=== PATIENT | female | born 1965 | race Caucasian/White ===

== ENCOUNTER 2018-04-07 11:49 | Emergency (ER) | payer BC ==
[2018-04-07 12:17] LABS: #Basophils 0.1 thou/uL (0.0-0.2); #Eosinphils 0.1 thou/uL (0.0-0.7); #Lymphocytes 3.9 thou/uL (1.20-3.40); #Monocytes 0.6 thou/uL (0.11-0.59); #Neutrophils 4.2 thou/uL (1.40-6.50); %Basophils 1.1 % (0.0-1.0); %Eosinophils 0.6 % (0.0-10.0); %Lymphocytes 44.4 % (21.0-51.0); %Monocytes 6.4 % (0.0-10.0); %Neutrophils 47.5 % (42.0-75.0); Mean Corpuscular HGB CONC 34.8 g/dL (32.0-36.0); Mean Corpuscular Hemoglobin 31.8 pg (27.0-31.0); Mean Corpuscular Volume 91.4 fL (78.0-98.0); Mean Platelet Volume 7.6 fL (7.4-10.4); Platelet Count 218 thou/uL (130-400); RBC Distribution Width 11.1 % (11.5-14.5); Red Blood Cell (RBC) Count 5.04 mill/uL (4.20-5.40); White Blood Cell (WBC) Count 8.9 thou/uL (4.8-10.8)
[2018-04-07] MEDS ORDERED: Mag-Al 1200 mg/1200 mg/30 ML UDCUP ONE (12:20)
[2018-04-07] MEDS ORDERED: Lidocaine Viscous Sol 2% 15 ml UD Cup ONE (12:20)
[2018-04-07 12:28] LABS: Bilirubin Negative (Negative); Blood, Urine Negative (Negative); Clarity CLEAR (Clear); Glucose, Urine (Dipstick) Negative (Negative); Leukocyte Negative (Negative); Nitrite Negative (Negative); Protein, Urine (Dipstick) Negative (Neg-Trace); Specific Gravity, Urine 1.006 (1.002-1.036); Urobilinogen 0.2 mg/dL (0.2-1.0); pH, Urine 7.5 (5.0-9.0)
[2018-04-07 12:39] LABS: ALT (SGPT) 18 U/L (8-55); AST (SGOT) 25 U/L (5-34); Albumin 4.8 g/dL (3.5-5.0); Alkaline Phosphatase 40 U/L (40-150); Anion Gap 18 mmol/L (10-20); BUN (Urea Nitrogen) 10 mg/dL (9.8-20.1); CK (CPK) 69 U/L (29-168); Calc. Creatinine Clearance 0 mL/min (70-130); Calcium 10.4 mg/dL (7.8-10.44); Carbon Dioxide 25 mmol/L (22-29); Chloride 101 mmol/L (98-107); Estimated GFR-MDRD 75; Globulin 2.5 g/dL (2.4-3.5); Glucose 113 mg/dL (70-105); Lipase 17 U/L (8-78); Potassium 4.5 mmol/L (3.5-5.1); Protein, Total 7.3 g/dL (6.0-8.3); Sodium 139 mmol/L (136-145)
[2018-04-07 12:41] LABS: CKMB 1.1 ng/mL (0-6.6); Troponin I Less than 0.010 ng/mL (< 0.028)
[2018-04-07] MEDS ORDERED: Pantoprazole 40 MG VIAL ONE (12:51)
--- NOTE | 2018-04-07 13:00 | RAD ---
PORTABLE CHEST ONE VIEW: 04/07/2018 11:33 a.m. HISTORY: Chest pain. FINDINGS: The heart size is normal. The lungs are well expanded without lobar consolidation, pneumothoraces, o r pleural effusions. IMPRESSION: No radiographic evidence of acute cardiopulmonary process. POS: [facility]
--- NOTE | 2018-04-07 13:53 | ULT ---
RIGHT UPPER QUADRANT ULTRASOUND: DATE: 04/07/18. HISTORY: Right upper quadrant epigastric pain. COMPARISON: 08/05/17. FINDINGS: The gallbladder, liver, visualized portions of the IVC, and right kidney demonstrate a normal sonogra phic appearance. The right kidney measures 8.6 cm in length which his stable in size compared to the prior exam. No definite gallbladder calculi are seen. The common duct is normal in caliber measuri ng 0.3 cm in diameter. The pancreas is mostly obscured by bowel gas. IMPRESSION: No gallbladder calculi visualized, and the common duct is normal in caliber. POS: [facility]
== END 2018-04-07 13:56 | disposition home or self-care (01) ==
LOC: ERS 11:49
DX: R10.13 Epigastric pain (principal); K21.9 Gastro-esophageal reflux disease without esophagitis; F41.9 Anxiety disorder, unspecified; F17.210 Nicotine dependence, cigarettes, uncomplicated; Z79.899 Other long term (current) drug therapy
CPT/HCPCS: 71045; 76705; 80053; 81003; 82550; 82553; 83690; 84484; 85025; 93005; 96374; C9113

== ENCOUNTER 2018-09-02 15:56 | Outpatient (CLI) | payer BC | END 2018-09-02 15:57 | disposition home or self-care (01) | LOC: BICMAMMO 15:56 | PROVIDERS: ATTEND Obstetrics & Gynecology | DX: Z12.31 Encounter for screening mammogram for malignant neoplasm of breast (principal); Z80.3 Family history of malignant neoplasm of breast | CPT/HCPCS: 77063; 77067 ==

== ENCOUNTER 2021-09-25 13:10 | Outpatient (CLI) | payer BC | END 2021-09-25 13:11 | disposition home or self-care (01) | LOC: BICRAD 13:10 | PROVIDERS: ATTEND Physician Assistant | DX: R05.3 Chronic cough (principal) | CPT/HCPCS: 71046 ==

== ENCOUNTER 2022-10-15 14:10 | Outpatient (CLI) | payer BC | END 2022-10-15 14:11 | disposition home or self-care (01) | LOC: BICMAMMO 14:10 | PROVIDERS: ATTEND Physician Assistant | DX: Z13.820 Encounter for screening for osteoporosis (principal); M85.851 Other specified disorders of bone density and structure, right thigh; M85.852 Other specified disorders of bone density and structure, left thigh | CPT/HCPCS: 77080 ==